=== PATIENT | female | born 1980 | race Caucasian/White ===

== ENCOUNTER 2017-06-11 07:39 | Inpatient (IN) | payer OTHER ==
[2017-06-11] VITALS (27 sets, daily range): BP systolic 114–138; BP diastolic 56–74
[~2017-06-11] VITALS: Ht 162.6 cm; Wt 95.7 kg
[2017-06-11] MEDS ORDERED: PRENATAL TABLE1 EAC3 PO (09:03)
[2017-06-11 11:12] LABS: EOSINOPHIL (%) 1.4 % (0-5); EOSINOPHIL COUNT 0.1 K/uL (0-0.3); HEMATOCRIT 33.7 % (36.0-46.0); IMMATURE GRANULOCYTE (%) 0.5 % (0.0-0.7); INSTRUMENT ABS NEUTROPHIL CT 5.4 K/uL; LYMPHOCYTE COUNT 2.2 K/uL (1.0-2.8); MCH 25.4 PG (29.0-34.0); MCHC 31.5 G/DL (30.0-36.0); MCV 80.6 FL (83-99); MONOCYTE (%) 8.7 % (3-12); MONOCYTE COUNT 0.7 K/uL (0-0.8); NEUTROPHIL (%) 63.9 % (45-76); NEUTROPHIL COUNT 5.4 K/uL (1.8-6.4); PLATELET COUNT 190 K/uL (156-360); RBC DIS.WIDTH-CV 14.7 % (11.8-14.6); RBC DIS.WIDTH-SD 43.1 % (39-53); RED BLOOD COUNT 4.18 M/uL (3.80-5.20); WHITE BLOOD COUNT 8.5 K/uL (4.1-10.2)
[2017-06-12] VITALS (15 sets, daily range): BP systolic 109–134; BP diastolic 55–65
[2017-06-12] MEDS ORDERED: MOTRIN800 MG PO (00:56)
[2017-06-12 10:33] LABS: EOSINOPHIL (%) 0.5 % (0-5); EOSINOPHIL COUNT 0.1 K/uL (0-0.3); IMMATURE GRANULOCYTE (%) 0.6 % (0.0-0.7); IMMATURE GRANULOCYTE COUNT 0.1 K/uL; LYMPHOCYTE COUNT 2.4 K/uL (1.0-2.8); MCH 25.8 PG (29.0-34.0); MCHC 32.2 G/DL (30.0-36.0); MCV 80.1 FL (83-99); MEAN PLAT.VOLUME 11.9 uM^3 (9.5-12.4); MONOCYTE (%) 9.9 % (3-12); MONOCYTE COUNT 1.5 K/uL (0-0.8); NEUTROPHIL (%) 72.9 % (45-76); PLATELET COUNT 175 K/uL (156-360); RBC DIS.WIDTH-CV 14.6 % (11.8-14.6); RBC DIS.WIDTH-SD 42.5 % (39-53); RED BLOOD COUNT 2.87 M/uL (3.80-5.20); WHITE BLOOD COUNT 15.1 K/uL (4.1-10.2)
[2017-06-13 07:22] VITALS: BP 124/56
[2017-06-13 09:07] LABS: HEMATOCRIT 21.7 % (36.0-46.0); MCH 25.8 PG (29.0-34.0); MCHC 31.3 G/DL (30.0-36.0); MCV 82.2 FL (83-99); MEAN PLAT.VOLUME 12.8 uM^3 (9.5-12.4); PLATELET COUNT 165 K/uL (156-360); RBC DIS.WIDTH-CV 14.8 % (11.8-14.6); RBC DIS.WIDTH-SD 43.7 % (39-53); RED BLOOD COUNT 2.64 M/uL (3.80-5.20); WHITE BLOOD COUNT 10.6 K/uL (4.1-10.2)
[2017-06-13] MEDS ORDERED: SLOW RELEASE I160 MG PO (09:53)
[2017-06-13 15:24] VITALS: BP 126/59
[2017-06-13 23:19] VITALS: BP 130/58
[2017-06-14 07:12] VITALS: BP 128/64
== END 2017-06-14 11:40 | disposition home or self-care (01) | DRG 774 ==
LOC: LDRP-OP → 2WEST 07:40 → LDRP-OP 19:53 → 2WEST 06-12 00:26 → LDRP-OP 07-19 14:38
PROVIDERS: Midwife; Nurse Practitioner
PROC: 10907ZC Drainage of Amniotic Fluid, Therapeutic from Products of Conception, Via Natural or Artificial Opening (ICD-10-PCS; principal; 2017-06-11)
PROC: 00HU33Z Insertion of Infusion Device into Spinal Canal, Percutaneous Approach (ICD-10-PCS; principal; 2017-06-11)
PROC: 3E0R3CZ (ICD-10-PCS; principal; 2017-06-11)
PROC: 3E033VJ Introduction of Other Hormone into Peripheral Vein, Percutaneous Approach (ICD-10-PCS; principal; 2017-06-11)
PROC: 0HQ9XZZ Repair Perineum Skin, External Approach (ICD-10-PCS; 2017-06-12)
PROC: 10E0XZZ Delivery of Products of Conception, External Approach (ICD-10-PCS; 2017-06-12)
DX: O70.0 First degree perineal laceration during delivery (principal); O72.1 Other immediate postpartum hemorrhage; O99.02 Anemia complicating childbirth; D62 Acute posthemorrhagic anemia; O69.1XX0 Labor and delivery complicated by cord around neck, with compression, not applicable or unspecified; O36.63X0 Maternal care for excessive fetal growth, third trimester, not applicable or unspecified; Z3A.39 39 weeks gestation of pregnancy; Z37.0 Single live birth; Z87.410 Personal history of cervical dysplasia
CPT/HCPCS: 85025; 85027; C1755; G0378; J2405; J2795; J3010; J7120